=== PATIENT | female | born 1945 | race Caucasian/White ===

== ENCOUNTER → 2016-08-07 | Outpatient (CLI) | payer OTHER ==
[~2016-08-07] MED LIST: ADVAIR HFA115 MCG/21; AMARYL2 MG PO; BRIMONIDINE TAR1 BO1 OPHTHALMIC; COZAAR 25 MG TA25 M1 PO; FLONASE 0.05%50 MCG NASAL; INDERAL LA120 MG PO; LATANOPROST 0.2.5 ML OPHTHALMIC; LINEZOLID600 MG PO; LIPITOR 20 MG T20 M1 PO; MUCINEX TA600 MG/TA2 PO; NEURONTIN 300300 M1 PO; NEURONTIN 400400 M1 PO; NOVOLOG100 UNIT/1 SUBQ; ONDANSETRON HCL4 M2 PO; PERCOCET PO; PROAIR HFA8.5 GM INH; TIMOLOL GL0.5 %/5 ML OP; VALACYCLOVIR1000 MG PO
[2016-08-07 13:59] LABS: ABSOLUTE NEUTROPHILS 1.9 thou/uL (1.4-8.2); BASOPHILS 1.3 % (0.0-2.0); EOSINOPHILS 3.4 % (0.0-3.0); HEMATOCRIT 40.7 % (37.0-47.0); HEMOGLOBIN 13.8 gm/dL (12.0-15.0); LYMPHOCYTES 24.8 % (24.0-44.0); MANUAL DIFF NO; MCH 30.8 pg (26.0-34.0); MCV 90.5 fL (80.0-100.0); MONOCYTES 7.5 % (1.0-8.0); PLATELET COUNT 140 thou/uL (150-400); RDW 13.2 % (10.5-14.5)
[2016-08-07 14:07] LABS: CALCIUM 9.2 mg/dL (8.5-10.1); CREATININE 0.7 mg/dL (0.6-1.0)
[2016-08-07 14:14] LABS: TOTAL BILIRUBIN 0.4 mg/dL (<0.1-1.0)
== END ==
LOC: CAT 13:18
PROVIDERS: Specialist
DX: J41.1 Mucopurulent chronic bronchitis (principal)

== ENCOUNTER → 2017-04-11 | Outpatient (CLI) | payer OTHER | LOC: CAT 09:19 | DX: J84.10 Pulmonary fibrosis, unspecified (principal); Z86.14 Personal history of Methicillin resistant Staphylococcus aureus infection ==

== ENCOUNTER → 2017-07-25 | Outpatient (CLI) | payer OTHER ==
[2017-07-25 12:44] LABS: CREATININE 0.7 mg/dL (0.6-1.0)
== END ==
LOC: CAT 06:00
PROVIDERS: Specialist
DX: R07.9 Chest pain, unspecified (principal); R91.1 Solitary pulmonary nodule